=== PATIENT | female | born 1950 | race Caucasian/White ===

== ENCOUNTER → 2017-03-23 | Outpatient (CLI) | payer MEDICARE ==
--- NOTE | 2017-03-23 11:59 | MM ---
Reason for exam: screening (asymptomatic). Last mammogram was performed 1 year ago. History: Patient is postmenopausal. Family history of breast cancer in maternal aunt and breast cancer in maternal cousin. 3 benign excisional biopsies of the left breast. Taking estrogen for 8 years beginning at age 54. Physical Findings: A clinical breast exam by your physician is recommended on an annual basis and results should be correlated with mammographic findings. MG 3D Screening Mammo W/Cad Bilateral CC and MLO view(s) were taken. Prior study comparison: March 18, 2016, bilateral MG screening mammo w CAD. March 14, 2015, bilateral MG screening mammo w CAD. January 30, 2014, bilateral digital screening mammo w/CAD. There are scattered fibroglandular densities. Finding: There is stable architectural distortion in the upper outer quadrant of the left breast consistent with known excisional biopsy. ASSESSMENT: Benign, BI-RAD 2 RECOMMENDATION: Routine screening mammogram of both breasts in 1 year.
== END | disposition home or self-care (01) ==
LOC: RADMAMWWP 10:02
PROVIDERS: ATTEND General Practice
DX: Z12.31 Encounter for screening mammogram for malignant neoplasm of breast (principal)
CPT/HCPCS: 77063; G0202

== ENCOUNTER → 2018-03-24 | Outpatient (CLI) | payer MEDICARE ==
--- NOTE | 2018-03-28 08:19 | MM ---
Reason for exam: screening (asymptomatic). Last mammogram was performed 1 year ago. History: Patient is postmenopausal. Family history of breast cancer in maternal aunt and breast cancer in maternal cousin. 3 benign excisional biopsies of the left breast. Took estrogen for 8 years beginning at age 54. Physical Findings: A clinical breast exam by your physician is recommended on an annual basis and results should be correlated with mammographic findings. MG 3D Screening Mammo W/Cad Bilateral CC and MLO view(s) were taken. Prior study comparison: March 23, 2017, bilateral MG 3d screening mammo w/cad. March 18, 2016, bilateral MG screening mammo w CAD. Finding: There is stable architectural distortion in the outer quadrant of the left breast consistent with history of multiple excisional benign biopsies. There is no discrete abnormality. ASSESSMENT: Benign, BI-RAD 2 RECOMMENDATION: Routine screening mammogram of both breasts in 1 year.
== END | disposition home or self-care (01) ==
LOC: RADMAMWWP 14:51
PROVIDERS: ATTEND Family Medicine
DX: Z12.31 Encounter for screening mammogram for malignant neoplasm of breast (principal)
CPT/HCPCS: 77063; 77067

== ENCOUNTER → 2020-04-21 | Outpatient (CLI) | payer MEDICARE ==
--- NOTE | 2020-04-23 11:04 | MM ---
Reason for exam: screening (asymptomatic). Last mammogram was performed 1 year ago. History: Patient is postmenopausal. Family history of breast cancer in maternal aunt and breast cancer in maternal cousin. 3 benign excisional biopsies of the left breast. Took estrogen for 8 years beginning at age 54. Physical Findings: A clinical breast exam by your physician is recommended on an annual basis and results should be correlated with mammographic findings. MG 3D Screening Mammo W/Cad Bilateral CC and MLO view(s) were taken. Prior study comparison: April 10, 2019, bilateral MG 3d screening mammo w/cad. March 24, 2018, bilateral MG 3d screening mammo w/cad. There are scattered fibroglandular densities. No significant changes when compared with prior studies. ASSESSMENT: Benign, BI-RAD 2 RECOMMENDATION: Routine screening mammogram of both breasts in 1 year.
== END | disposition home or self-care (01) ==
LOC: RADMAMWWP 14:30
PROVIDERS: ATTEND General Practice
DX: Z12.31 Encounter for screening mammogram for malignant neoplasm of breast (principal)
CPT/HCPCS: 77063; 77067

== ENCOUNTER → 2021-05-28 | Outpatient (CLI) | payer MEDICARE ==
--- NOTE | 2021-05-29 13:50 | MM ---
Reason for exam: screening (asymptomatic). Last mammogram was performed 1 year and 1 month ago. History: Patient is postmenopausal. Family history of breast cancer in maternal aunt and breast cancer in maternal cousin. 3 benign excisional biopsies of the left breast. Took estrogen for 8 years beginning at age 54. Physical Findings: A clinical breast exam by your physician is recommended on an annual basis and results should be correlated with mammographic findings. MG 3D Screening Mammo W/Cad Bilateral CC and MLO view(s) were taken. Prior study comparison: April 21, 2020, bilateral MG 3d screening mammo w/cad. April 10, 2019, bilateral MG 3d screening mammo w/cad. There are scattered fibroglandular densities. There are benign appearing round calcifications bilaterally. There is no discrete abnormality. ASSESSMENT: Benign, BI-RAD 2 RECOMMENDATION: Routine screening mammogram of both breasts in 1 year.
== END | disposition home or self-care (01) ==
LOC: RADMAMWWP 15:51
PROVIDERS: ATTEND General Practice
DX: Z12.31 Encounter for screening mammogram for malignant neoplasm of breast (principal)
CPT/HCPCS: 77063; 77067

== ENCOUNTER → 2022-06-02 | Outpatient (CLI) | payer MEDICARE ==
--- NOTE | 2022-06-03 09:36 | MM ---
Reason for Exam: Screening (asymptomatic). Last screening mammogram was performed 12 month(s) ago. Patient History: Menarche at age 13. First Full-Term at age 24. Left ovary removed at age 54. Right ovary removed at age 54. Hysterectomy at age 54. Postmenopausal. Estrogen, starting at age 54 for 8 years. Benign Excisional Biopsy on the left side. Benign Excisional Biopsy on the left side. Benign Excisional Biopsy on the left side. Maternal cousin had breast cancer. Maternal aunt had breast cancer. Risk Values: Priya 5 year model risk: 2.7%. NCI Lifetime model risk: 6.9%. Prior Study Comparison: 04/10/2019 Bilateral Screening Mammogram, [facility]. 04/21/2020 Bilateral Screening Mammogram, [facility]. 05/28/2021 Bilateral Screening Mammogram, [facility]. Tissue Density: There are scattered fibroglandular densities. Findings: Analyzed By CAD. Stable distortion in the left breast from prior excision centrally seen best on MLO images. There is no suspicious group of microcalcifications or new suspicious mass in either breast. Overall Assessment: Negative, BI-RAD 1 Management: Screening Mammogram of both breasts in 1 year. A clinical breast exam by your physician is recommended on an annual basis and results should be correlated with mammographic findings. Electronically signed and approved by: Josef Britt M.D.
== END | disposition home or self-care (01) ==
LOC: RADMAMWWP 10:51
PROVIDERS: ATTEND Family Medicine
DX: Z12.31 Encounter for screening mammogram for malignant neoplasm of breast (principal); Z78.0 Asymptomatic menopausal state; Z80.3 Family history of malignant neoplasm of breast
CPT/HCPCS: 77063; 77067

== ENCOUNTER → 2023-06-21 | Outpatient (CLI) | payer MEDICARE ==
[2023-06-21 10:17] VITALS: BP 138/80; PULSE 63; RESP 16; TEMP 98.2
--- NOTE | 2023-06-21 18:56 | P.HPOB ---
History of Present Illness H&P Date: 06/21/23 Chief Complaint: The patient is here for her routine gynecologic exam and ma mmogram. This is a 72-year-old with an LMP of 2004. The patient is here to establish with this office. It has been about 1 year since she has had a pelvic exam. She states she has a known rectocele which was diagnosed 3 years ago. She occasionally feels something at the opening, but does not see anything protruding outside of the vagina. She thinks it is more noticeable at the opening when she is doing lifting. She is otherwise without gynecologic complaints Review of Systems The patient's weight has been stable over the last year. She denies respirato ry, cardiac, or G.I. problems. Past Medical History Past Medical History: Asthma, Hypertension, Thyroid Disorder Additional Past Medical History / Comment(s): VERTIGO. ALLERGY-induced asthma. IBS. Hypothyroidism. Tachycardia. PAST EXPLOSIVE ORDNANCE SPECIALIST HISTORY: She has no history of STDs. She briefly used ERT after her hysterectomy History of Any Multi-Drug Resistant Organisms: None Reported Past Surgical History: Breast Surgery, Hysterectomy Additional Past Surgical History / Comment(s): JAMISON/BSO 2004. Breast biopsies 2. Colonoscopy 2020(next after 5yr). Past Anesthesia/Blood Transfusion Reactions: No Reported Reaction Past Psychological History: Anxiety (PHQ 2 score: Less than 3.) Additional Psychological History / Comment(s): Anxiety only when flying in an airplane. Smoking Status: Never smoker Past Alcohol Use History: None Reported Past Drug Use History: None Reported Additional History: She has been a since 2017 and is not sexually active. She is a retired schoolteacher. - Past Family History Mother Additional Family Medical History / Comment(s): . Father Family Medical History: Dementia Sister(s) Family Medical History: Cancer, Diabetes Mellitus Additional Family Medical History / Comment(s): Lung cancer. Another sister had bladder cancer and diabetes. Brother(s) Family Medical History: Cancer, Myocardial Infarction ([place]) Additional Family Medical History / Comment(s): Gastric cancer. Medications and Allergies Home Medications Medication Instructions Recorded Confirmed Type ALPRAZolam [Xanax] 0.5 mg PO DIRECTED PRN 06/21/23 06/21/23 History Albuterol Sulfate [Ventolin HFA] 1 puff INHALATION DIRECTED PRN 06/21/23 06/21/23 History Azelaic Acid 1 applic TOPICAL DAILY 06/21/23 06/21/23 History Azelastine/Fluticasone 1 spray NASAL DAILY 06/21/23 06/21/23 History [Azelastin-Flutic 137-50Mcg Spr] Dicyclomine HCl 10 mg PO DIRECTED 06/21/23 06/21/23 History Levothyroxine Sodium 88 mg PO DAILY 06/21/23 06/21/23 History Meclizine HCl 25 mg PO DIRECTED 06/21/23 06/21/23 History Multivitamin [Multivitamins Adult 1 tab PO DAILY 06/21/23 06/21/23 History Gummies] Pravastatin Sodium [Pravachol] 20 mg PO DAILY 06/21/23 06/21/23 History Tretinoin [Tretinoin 0.1%] 1 applic TOPICAL DIRECTED 06/21/23 06/21/23 History atenoloL 25 mg PO DAILY 06/21/23 06/21/23 History Allergies Allergy/AdvReac Type Severity Reaction Status Date / Time No Known Allergies Allergy Unverified 06/21/23 10:06 Exam Vital Signs Temp Pulse Resp BP Pulse Ox 06/21/23 10:12 98.2 F 63 16 138/80 99 Intake and Output 06/20/23 06/21/23 06/21/23 22:59 06:59 14:59 Other: Weight 78.925 kg Height 5 feet 3 inches, weight 174 pounds, BMI 30.8. This is a well-developed well-nourished white female who is alert and oriented times 3 in no acute distress. HEENT: Within normal limits. NECK: Supple without mass or thyromegaly. CHEST AND LUNGS: Clear to auscultation. HEART: Regular rate and rhythm. BREASTS: Are without mass or discharge. AXILLARY EXAM: Negative for adenopathy. BACK: Negative for CVA tenderness. ABDOMEN: Soft, nontender, without palpable masses. PELVIC EXAM: External genitalia appears normal with mild to moderate atrophy. Vagina appears normal with mild to moderate atrophy. There is a grade 2 rectocele noted which approaches the introitus with Valsalva. The mucosa overlying the rectocele shows no signs of ulceration or excoriation. Bimanual examination is negative for mass or tenderness. RECTAL EXAM: Rectovaginal exam is negative for mass or tenderness and is negative for occult blood. This does confirm a grade 2 rectocele. There is also a small enterocele noted upon Valsalva EXTREMITIES: Nontender. IMPRESSION: 1. 72-year-old menopausal female status post JAMISON/BSO for benign reasons, with grade 2-3 rectocele and small enterocele. This is minimally symptomatic. PLAN: 1. Pap smears have been discontinued. 2. Self breast awareness was discussed with the patient. We have also discussed symptoms associated with inflammatory breast cancer. 3. Screening mammogram was done today. 4. Osteoporosis prevention was discussed. I have stressed the importance of adequate calcium, vitamin D and regular exercise. Recommended amounts of calcium and vitamin D were also discussed. She had a normal bone density test done on 04/10/2019. An order slip to repeat the bone density test was given to the patient. 5. We have had a long discussion regarding the rectocele and small enterocele. We have discussed various options including surgical correction, conservative management and pessary use. We will proceed with conservative management at this time since her symptoms are minimal. We have also discussed negative Valsalva exercises. I have also recommended that she avoid heavy lifting and avoid holding stool longer than necessary. She was instructed to make an appointment if she thinks her symptoms are worsening. 6. She was advised to return in one year for her annual well woman exam and as needed.
--- NOTE | 2023-06-22 15:44 | MM ---
Reason for Exam: Screening (asymptomatic). Last mammogram was performed 1 year(s) and 1 month(s) ago. Patient History: Menarche at age 13. First Full-Term at age 24. Left ovary removed at age 54. Right ovary removed at age 54. Hysterectomy at age 54. Postmenopausal. Estrogen, starting at age 54 for 8 years. Benign Excisional Biopsy on the left side. Benign Excisional Biopsy on the left side. Benign Excisional Biopsy on the left side. Maternal cousin had breast cancer. Maternal aunt had breast cancer. Risk Values: Priya 5 year model risk: 2.7%. NCI Lifetime model risk: 6.5%. Prior Study Comparison: 04/21/2020 Bilateral Screening Mammogram, [facility]. 05/28/2021 Bilateral Screening Mammogram, [facility]. 06/02/2022 Bilateral MG 3D screening mammo w/cad, [facility]. Tissue Density: There are scattered fibroglandular densities. Findings: Analyzed By CAD. Pattern appears symmetrical and stable. Focal asymmetry is within the upper outer left breast, stable from comparison. No significant interval change is evident. No suspicious groups of microcalcifications, spiculated or lobular masses, architectural distortion or other secondary signs of malignancy are mammographically apparent. Overall Assessment: Benign, BI-RAD 2 Management: Screening Mammogram of both breasts in 1 year. A negative mammogram report should not preclude additional follow up of suspicious palpable abnormalities. Patient should continue monthly self breast exam. A clinical breast exam by your physician is recommended on an annual basis and results should be correlated with mammographic findings. Electronically signed and approved by: Nader Fletcher D.O. Radiologis
== END ==
LOC: WWCWWP 09:51
PROVIDERS: ATTEND Obstetrics & Gynecology
DX: Z01.419 Encounter for gynecological examination (general) (routine) without abnormal findings (principal); E03.9 Hypothyroidism, unspecified; I10 Essential (primary) hypertension; J45.909 Unspecified asthma, uncomplicated; K58.9 Irritable bowel syndrome, unspecified; N81.6 Rectocele; K46.9 Unspecified abdominal hernia without obstruction or gangrene; Z79.890 Hormone replacement therapy; Z79.899 Other long term (current) drug therapy; Z90.722 Acquired absence of ovaries, bilateral; Z12.31 Encounter for screening mammogram for malignant neoplasm of breast; Z78.0 Asymptomatic menopausal state
CPT/HCPCS: 77063; 77067

== ENCOUNTER → 2024-08-14 | Outpatient (CLI) | payer MEDICARE ==
[2024-08-14 08:09] VITALS: BP 131/77; PULSE 74; RESP 16; TEMP 97.6
--- NOTE | 2024-08-14 08:41 | P.HPOB ---
History of Present Illness H&P Date: 08/14/24 Chief Complaint: The patient is here for her routine gynecologic exam and ma mmogram. This is a 74-year-old with an LMP of 2004. The patient is status post JAMSION/BSO for benign reasons. The patient has a known rectocele. She denies anything protruding through the opening of the vagina, but she has occasionally had uncontrolled bowel movements. More recently she has been having very small pellet-like bowel movements. She has been seeing her GI doctor for her IBS s ymptoms. Review of Systems The patient has lost 3 pounds over the last year. She denies respiratory or cardiac problems. GI: Occasional uncontrolled bowel movements and IBS symptoms. Also see the HPI. Past Medical History Past Medical History: Asthma, Hypertension, Thyroid Disorder Additional Past Medical History / Comment(s): VERTIGO. ALLERGY-induced asthma. IBS. Hypothyroidism. Tachycardia. 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 She briefly used ERT after her hysterectomy History of Any Multi-Drug Resistant Organisms: None Reported Past Surgical History: Breast Surgery, Hysterectomy Additional Past Surgical History / Comment(s): JAMISON/BSO 2004. Breast biopsies 2. Colonoscopy 2020(next after 5yr). Past Anesthesia/Blood Transfusion Reactions: No Reported Reaction Past Psychological History: Anxiety Additional Psychological History / Comment(s): Anxiety only when flying in an airplane. Smoking Status: Never smoker Past Alcohol Use History: None Reported Past Drug Use History: None Reported Additional History: She has been a since 2017 and is not sexually active. 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 - Past Family History Mother Additional Family Medical History / Comment(s): . Father Family Medical History: Dementia Sister(s) Family Medical History: Cancer, Diabetes Mellitus Additional Family Medical History / Comment(s): Lung cancer. Another sister had bladder cancer and diabetes. Brother(s) Family Medical History: Cancer, Myocardial Infarction ([place]) Additional Family Medical History / Comment(s): Gastric cancer. Medications and Allergies Home Medications Medication Instructions Recorded Confirmed Type ALPRAZolam [Xanax] 0.5 mg PO DIRECTED PRN 06/21/23 08/14/24 History Albuterol Sulfate [Ventolin HFA] 1 puff INHALATION DIRECTED PRN 06/21/23 08/14/24 History Azelaic Acid 1 applic TOPICAL DAILY 06/21/23 08/14/24 History Azelastine/Fluticasone 1 spray NASAL DAILY 06/21/23 08/14/24 History [Azelastin-Flutic 137-50Mcg Spr] Dicyclomine HCl 10 mg PO DIRECTED 06/21/23 08/14/24 History Levothyroxine Sodium 88 mg PO DAILY 06/21/23 08/14/24 History Meclizine HCl 25 mg PO DIRECTED 06/21/23 08/14/24 History Multivitamin [Multivitamins Adult 1 tab PO DAILY 06/21/23 08/14/24 History Gummies] Pravastatin Sodium [Pravachol] 20 mg PO DAILY 06/21/23 08/14/24 History Tretinoin [Tretinoin 0.1%] 1 applic TOPICAL DIRECTED 06/21/23 08/14/24 History atenoloL 25 mg PO DAILY 06/21/23 08/14/24 History Allergies Allergy/AdvReac Type Severity Reaction Status Date / Time No Known Allergies Allergy Unverified 08/14/24 08:05 Exam Vital Signs Temp Pulse Resp BP Pulse Ox 08/14/24 08:06 97.6 F 74 16 131/77 96 Intake and Output 08/13/24 08/14/24 08/14/24 22:59 06:59 14:59 Other: Weight 77.564 kg Height 5 feet 3 inches, weight 171 pounds, BMI 30.3. This is a well-developed well-nourished white female who is alert and oriented times 3 in no acute distress. HEENT: Within normal limits. NECK: Supple without mass or thyromegaly. CHEST AND LUNGS: Clear to auscultation. HEART: Regular rate and rhythm. BREASTS: Are without mass or discharge. There is a dimpled area where she had a breast biopsy in the left breast at approximately the 4 o'clock position. This is directly under the scar from the biopsy. This is not new according to the patient. AXILLARY EXAM: Negative for adenopathy. BACK: Negative for CVA tenderness. ABDOMEN: Soft, nontender, without palpable masses. PELVIC EXAM: External genitalia appears normal with mild atrophy. Vagina appears normal with mild atrophy. There is a grade 2-3 rectocele which is unchanged from her previous exam. There is no significant cystocele. The vaginal cuff seems well supported. Bimanual examination is negative for mass or tenderness. RECTAL EXAM: Rectovaginal exam is negative for mass or tenderness and is negative for occult blood. This confirms a rectocele. No significant enterocele is noted on exam today. EXTREMITIES: Nontender. IMPRESSION: 1. 74-year-old menopausal female status post JAMISON/BSO for benign reasons, with stable grade 2-3 rectocele. PLAN: 1. Pap smears have been discontinued 2. Self breast awareness was discussed with the patient. We have also discussed symptoms associated with inflammatory breast cancer. 3. Screening mammogram will be done today. 4. Osteoporosis prevention was discussed. I have stressed the importance of adequate calcium, vitamin D and regular exercise. Recommended amounts of calcium and vitamin D were also discussed. Bone density test will be done today since her last 1 was about 5 years ago. 5. Continue conservative management for the rectocele. I have stressed the importance of not holding stool longer than necessary. We have also discussed Kegel exercises which may help with uncontrolled bowel movements. She will also continue to follow-up with her GI specialist regarding her IBS symptoms. 6. She was advised to return in one year for her annual well woman exam and as needed.
--- NOTE | 2024-08-15 21:33 | BD ---
EXAMINATION TYPE: Axial Bone Density DATE OF EXAM: 08/14/2024 CLINICAL HISTORY: 74 years old Female. ICD-10 CODE: Z78.0 POST MENOPAUSAL , Z78.0 Height: 63 Weight: 171 FRAX RISK QUESTIONS: Alcohol (3 or more units per day): no Family History (Parent hip fracture): no Glucocorticoids (More than 3mos): no (Ex: prednisone, prednisolone, methylprednisolone, dexamethasone, and hydrocortisone). History of Fracture in Adulthood: no Secondary Osteoporosis: 1. Type 1 Diabetes: no 2. Hyperthyroidism: no 3. Menopause before 45: no 4. Malnutrition: no 5. Chronic liver disease: no Rheumatoid Arthritis: no Current Tobacco Use: no RISK FACTORS HISTORY OF: Surgery to Spine/Hip(right/left)/Wrist (right/left): no MEDICATIONS: Thyroid Medications: levothyroxine How Lon years EXAM MEASUREMENTS: Bone mineral densitometry was performed using the Dazo System. Bone mineral density as measured about the Lumbar spine is: ----- L1-L4(G/cm2): 1.303 T Score Values are as follows: ----- L1: -1.2 ----- L2: 1.0 ----- L3: 1.6 ----- L4: 2.5 ----- L1-L4: 1.0 Z Score Values are as follows: ----- L1: 0.1 ----- L2: 2.3 ----- L3: 2.9 ----- L4: 3.8 ----- L1-L4: 2.4 Bone mineral density has: increased 0.9 % since study of: 04.10.2019 Bone mineral density about the R hip (g/cm2): 1.116 Bone mineral density about the L hip (g/cm2): 1.101 T Score values are as follows: -----R Neck: -0.5 -----L Neck: -0.3 -----R Total: 0.9 -----L Total: 0.7 Z Score values are as follows: -----R Neck: 1.1 -----L Neck: 1.4 -----R Total: 2.3 -----L Total: 2.2 Bone mineral density has: decreased -7.1 % since study of: . FRAX%s: The graph provided illustrates a 8.2% chance for a major osteoporotic fx and a 0.9% chance fo r the hips probability for fx in 10 years time. IMPRESSION: Normal (Values between +1 and -1 indicate normal bone mass). Consider repeating this study in 5 year s or sooner if there is some new clinical indication. NOTE: T-SCORE=SD OF THE YOUNG ADULT MEAN. [facility], , 08/15/2024 9:31 PM
== END ==
LOC: WWCWWP 07:51
PROVIDERS: ATTEND Obstetrics & Gynecology
DX: Z12.31 Encounter for screening mammogram for malignant neoplasm of breast (principal); N81.6 Rectocele; Z78.0 Asymptomatic menopausal state; Z90.722 Acquired absence of ovaries, bilateral; Z90.710 Acquired absence of both cervix and uterus
CPT/HCPCS: 77063; 77067; 77080